=== PATIENT | male | born 1955 | race Caucasian/White ===

== ENCOUNTER → 2016-10-26 | Outpatient (CLI) | payer MEDICARE | LOC: HEART 5 08:29 | DX: I25.10 Atherosclerotic heart disease of native coronary artery without angina pectoris (principal); I20.9 Angina pectoris, unspecified; R94.39 Abnormal result of other cardiovascular function study | CPT/HCPCS: 78452; 93306; A9502; J2785 ==

== ENCOUNTER 2020-08-09 09:52 | Emergency (ER) | payer MEDICARE, OTHER ==
[~2020-08-09 09:52] MED LIST: DICYCLOMINE HCL10 MG PO; DOXAZOSIN MESYLA1 MG PO; IMDUR ER TAB 3030 MG PO; LISINOPRIL20 MG PO; PLAVIX75 MG PO; PRAVACHOL20 MG PO; TRAMADOL HCL50 MG PO; XANAX0.5 MG PO
[2020-08-09 11:55] LABS: RED BLOOD COUNT 5.07 M/UL (4.20-5.50); WHITE BLOOD COUNT 7.9 K/UL (4.5-11.0)
[2020-08-09 12:22] LABS: BUN/CREATININE RATIO 23 (0-10)
== END 2020-08-09 13:10 | disposition other institution (70) ==
LOC: ER1 09:52
PROVIDERS: Physician Assistant
DX: S06.5X0A Traumatic subdural hemorrhage without loss of consciousness, initial encounter (principal); S16.1XXA Strain of muscle, fascia and tendon at neck level, initial encounter; S40.012A Contusion of left shoulder, initial encounter; I11.9 Hypertensive heart disease without heart failure; E11.9 Type 2 diabetes mellitus without complications; Z95.1 Presence of aortocoronary bypass graft; W11.XXXA Fall on and from ladder, initial encounter; Y92.009 Unspecified place in unspecified non-institutional (private) residence as the place of occurrence of the external cause
CPT/HCPCS: 36415; 70450; 72125; 73030; 80053; 85025; 85610; 85730; 99285

== ENCOUNTER → 2020-08-19 | Outpatient (CLI) | payer MEDICARE, OTHER | LOC: ECHO 12:47 | DX: I25.10 Atherosclerotic heart disease of native coronary artery without angina pectoris (principal); I27.20 Pulmonary hypertension, unspecified; I08.1 Rheumatic disorders of both mitral and tricuspid valves | CPT/HCPCS: ECHO; 93306 ==

== ENCOUNTER 2020-09-30 10:50 | Emergency (ER) | payer MEDICARE, OTHER | END 2020-09-30 12:45 | disposition short-term general hospital (02) | LOC: ER1 10:50 | DX: S06.5X9A Traumatic subdural hemorrhage with loss of consciousness of unspecified duration, initial encounter (principal); I10 Essential (primary) hypertension; W19.XXXA Unspecified fall, initial encounter | CPT/HCPCS: 70450; 99284 ==